=== PATIENT | female | born 2000 | race African-American/Black ===

== ENCOUNTER 2024-04-24 17:47 | Emergency (ER) | payer SELFPAY | END 2024-04-24 18:27 | disposition home or self-care (01) | LOC: FB.ED 17:47 | DX: S86.912A Strain of unspecified muscle(s) and tendon(s) at lower leg level, left leg, initial encounter (principal); Z88.1 Allergy status to other antibiotic agents; Z79.899 Other long term (current) drug therapy; X58.XXXA Exposure to other specified factors, initial encounter | CPT/HCPCS: 99283 ==